=== PATIENT | female | born 1965 | race Caucasian/White ===

== ENCOUNTER 2025-04-14 12:37 | Emergency (ER) | payer BC, SELFPAY ==
--- NOTE | 2025-04-14 12:39 | ED.URI ---
HPI - URI/Sore Throat General Chief Complaint: Upper Respiratory Infection Stated Complaint: Cough Time Seen by Provider: 04/14/25 12:39 Source: patient Mode of arrival: ambulatory Limitations: no limitations History of Present Illness HPI Narrative: Belinda is a 60-year-old female patient presenting to the clinic today with complaints of a cough, right nasal congestion, and right ear congestion/decreased hearing x 2 days. She reports no fever, chills, or body aches. Has not taken any medications for her symptoms. Denies sore throat. Related Data Home Medications ?Medication ?Instructions ?Recorded ?Confirmed ?Last Taken ?Type bupropion HCl 150 mg 24 hr tablet, mg PO 04/14/25 Unknown History extended release fluoxetine 10 mg capsule mg 04/14/25 Unknown History furosemide 40 mg tablet mg 04/14/25 Unknown History trazodone 50 mg tablet mg 04/14/25 Unknown History Allergies Allergy/AdvReac Type Severity Reaction Status Date / Time codeine Allergy Intermediate Hives Verified 04/14/25 12:50 nitrofurantoin (From Allergy Intermediate Hives Verified 04/14/25 12:50 Macrobid) Review of Systems Review of Systems: Pertinent positives per HPI. Patient denies any fever, chills, rash, headache, visual changes, dizziness, shortness of breath, chest pain, palpitations, nausea, vomiting, diarrhea, constipation, abdominal pain, or any urinary issues. PMFSH Comments At the time of my signature, I reviewed and agree with the nursing past medical, surgical, social, and family history. There is no relevant family history pertinent to the patient complaint. Exam Narrative: General: Well-developed, well nourished, in no apparent distress Head: Normocephalic, atraumatic Eyes: Pupils equally round and reactive to light bilaterally, EOM intact, sclera and conjunctive clear, no discharge, lids normal Ears: TMs intact and clear, ear canals clear, no drainage, grossly hearing normal. Nose: Nares patent, clear nasal discharge, mild inflammation, no sinus tenderness. Mouth: Oral pharynx without lesions or masses, good dentition, MMM. Tonsils surgical absent. Neck: Supple, trachea midline, no enlargement of anterior or posterior cervical nodes, no thyroid masses or goiter palpable. Cardio: Regular rate and rhythm, s1 and s2 normal, no murmur appreciated. Resp: Clear to auscultation bilaterally, no rhonchi, rales, wheezing or rubs Course Course Emergency Course: Portions of this record may have been created with voice recognition software. Level of Care: Express Care Visit Vital Signs Vital signs: Vital Signs Temperature 36.6 C 04/14/25 12:42 Pulse Rate 91 04/14/25 12:42 Respiratory Rate 16 04/14/25 12:42 Blood Pressure 130/83 04/14/25 12:42 Pulse Oximetry 100 04/14/25 12:42 Oxygen Delivery Room Air 04/14/25 12:42 Temperature 36.6 C 04/14/25 12:42 Pulse Rate 91 04/14/25 12:42 Respiratory Rate 16 04/14/25 12:42 Blood Pressure 130/83 04/14/25 12:42 Pulse Oximetry 100 04/14/25 12:42 Oxygen Delivery Room Air 04/14/25 12:42 Vital signs reviewed MDM - URI/Sore Throat MDM Narrative Medical decision making narrative: At the time of visit patient is resting comfortably on the exam table. Patient appears to be nontoxic. Complaints of a cough, right nasal congestion, and right ear congestion/decreased hearing x 2 days. She reports no fever, chills, or body aches. Has not taken any medications for her symptoms. Denies sore throat. on exam patient has bilateral TMs intact and clear, clear nasal drainage, mild anterior turbinate inflammation, oral pharynx normal, no cervical lymphadenopathy, tonsils surgically absent, lung sounds are clear, heart rates regular rate and rhythm. Plan: I suspect patient has URI. Supportive measures were discussed with the patient and they voiced understanding discharge instructions and agrees to treatment plan. Return precautions reviewed Differential Diagnosis Differential diagnosis: Likely upper respiratory infection, otitis media, sinusitis, viral infection, bronchitis, influenza, pharyngitis and other ( COVID) Discharge Plan Discharge Clinical Impression: Upper respiratory infection Qualifiers: URI type: unspecified URI Qualified Code(s): J06.9 - Acute upper respiratory infection, unspecified Patient Disposition: Home Condition: Stable Instructions: Antibiotic Form, Cold Symptoms (ED) Additional Instructions: Increase fluids and stay well hydrated May take Tylenol or motrin as directed on bottle for pain/fever May use Flonase 1 spray in each nare daily May take OTC antihistamines such as Zyrtec or Claritin daily as directed on bottle May apply Vicks vapor rub to chest to open sinuses Sinus rinses for congestion/ Neti pot Cepacol spray, cough drops, throat lozenges, warm tea with honey/lemon, gargle salt water to soothe throat BRAT diet for diarrhea Clear liquids x 24 hours then advance as tolerated for nausea/vomiting Go to the ED if you develop a worsening in your condition- high fever not controlled by Tylenol or Motrin, dehydration, weakness, lethargy, shortness of breath, or chest pain. Follow up with your PCP in 3-5 days if symptoms persist. Patient Language: Romanian Prescriptions: No Action furosemide 40 mg tablet trazodone 50 mg tablet fluoxetine 10 mg capsule bupropion HCl 150 mg tablet extended release 24 hr PO Follow-up/Referrals: UNKNOWN,DOCTOR [Non-Staff] Time of Disposition: 13:02 Quality NIHSS Nursing Documentation ED NIHSS nursing documentation: reviewed/agree
[2025-04-14 12:42] VITALS: BP 130/83; PULSE 91; RESP 16; TEMP 36.6; O2SAT 100
== END 2025-04-14 13:06 | disposition home or self-care (01) ==
PROVIDERS: Emergency Provider Nurse Practitioner Family
DX: J06.9 Acute upper respiratory infection, unspecified (principal)
CPT/HCPCS: 99202; G0463